=== PATIENT | female | born 1990 | race Two or more races ===

== ENCOUNTER 2021-12-06 17:24 | Emergency (ER) | payer SELFPAY ==
[~2021-12-06] VITALS: Ht 157.5 cm; Wt 70.0 kg
[2021-12-06 18:39] VITALS: BP 122/85
[2021-12-06] MEDS ORDERED: IBUP800T26 PO (19:21)
[2021-12-06] MEDS ORDERED: SULF400T11 PO (19:21)
[2021-12-06] MEDS ORDERED: VALA1TAB PO (19:21)
[2021-12-08 06:06] LABS: RPR Non Reactive (Non Reactive)
== END 2021-12-06 20:03 | disposition home or self-care (01) ==
LOC: ER 17:24
DX: B00.9 Herpesviral infection, unspecified (principal); Z88.0 Allergy status to penicillin
CPT/HCPCS: 86592; 86695; 86696